=== PATIENT | male | born 1970 | race Caucasian/White ===

== ENCOUNTER 2019-05-11 06:06 | Emergency (ER) | payer BC ==
[2019-05-11] MEDS ORDERED: methylPREDNISolone Sodium Succinate 125 MG/2 ML SDV IM ONE (06:22)
--- NOTE | 2019-05-11 06:27 | EDM.PDOC ---
ED HPI GENERAL MEDICAL PROBLEM - General Chief Complaint: Skin Complaint Stated Complaint: RT ARM REDNESS Time Seen by Provider: 05/11/19 06:09 Source of Information: Reports: Patient History Limitations: Reports: No Limitations - History of Present Illness INITIAL COMMENTS - FREE TEXT/NARRATIVE: This is a 48-year-old male. He apparently was pulling out some findings that we think might be poison oak and he cut a small patch on his right ventral forearm. It is blistered and reddened and swollen and he comes to the ER for evaluation. No fever no chills but there is some redness with a swelling suggesting he is developing a cellulitis from it. The patches about 9 cm x 6 cm. He denies any other acute symptoms. - Related Data Allergies Allergy/AdvReac Type Severity Reaction Status Date / Time No Known Allergies Allergy Verified 05/11/19 06:14 Home Meds: Home Meds Cephalexin [Keflex] 500 mg PO TID #21 capsule 05/11/19 [Rx] ED ROS GENERAL - Review of Systems Review Of Systems: See Below Constitutional: Denies: Fever, Chills HEENT: Reports: No Symptoms Respiratory: Reports: No Symptoms Cardiovascular: Reports: No Symptoms Endocrine: Reports: No Symptoms GI/Abdominal: Reports: No Symptoms : Reports: No Symptoms Musculoskeletal: Reports: No Symptoms Skin: Reports: Other (As per history of present illness) Neurological: Reports: No Symptoms Psychiatric: Reports: No Symptoms Hematologic/Lymphatic: Reports: No Symptoms ED EXAM, SKIN/RASH Exam: See Below Exam Limited By: No Limitations General Appearance: Alert, WD/WN, No Apparent Distress Ears: Normal External Exam Nose: Normal Inspection Throat/Mouth: Normal Inspection, Normal Lips, Normal Voice, No Airway Compromise Head: Normocephalic Neck: Supple Respiratory/Chest: No Respiratory Distress Back Exam: Full Range of Motion Extremities: Other (On the right ventral forearm there is a 9 x 6 cm area of blistering and redness and swelling there is no other acute findings) Neurological: Alert, Oriented Psychiatric: Normal Affect, Normal Mood Skin: Warm, Dry Course - Vital Signs Last Recorded V/S: Last Vital Signs Temp 98.5 F 05/11/19 06:14 Pulse 62 05/11/19 06:14 Resp 16 05/11/19 06:14 BP 142/87 H 05/11/19 06:14 Pulse Ox 96 05/11/19 06:14 - Orders/Labs/Meds Orders: Active Orders 24 hr Category Date Time Status cefTRIAXone 1 GM with Lidocaine 1% 2.1 ML IM Med 05/11/19 06:30 Ordered cefTRIAXone [Rocephin] 1 gm Lidocaine 1% [Xylocaine 1%] 2.1 ml IM Q24H methylPREDNISolone Sod Succ [Solu-MEDROL] Med 05/11/19 06:22 Once 125 mg IM ONETIME ONE Departure - Departure Time of Disposition: 06:24 Disposition: Home, Self-Care 01 Condition: Good Clinical Impression: Contact dermatitis and eczema due to plant, Cellulitis of right forearm - Discharge Information *PRESCRIPTION DRUG MONITORING PROGRAM REVIEWED*: Not Applicable *COPY OF PRESCRIPTION DRUG MONITORING REPORT IN PATIENT ANT: Not Applicable Prescriptions: Cephalexin [Keflex] 500 mg PO TID #21 capsule Instructions: Cellulitis, Adult, Contact Dermatitis, [id number] Referrals: PCP,None [Primary Care Provider] - Additional Instructions: Keep the area clean with soap and water and covered, you may use the Caladryl lotion or if you want some hydrocortisone cream would work well to help dry the contact dermatitis, take the Keflex until it is finished, recheck with your family doctor later this week if it is not improving, return to the ER if it is obviously worsening or you have a fever greater than 101. - My Orders Last 24 Hours: My Active Orders 05/11/19 06:22 methylPREDNISolone Sod Succ [Solu-MEDROL] 125 mg IM ONETIME ONE 05/11/19 06:30 cefTRIAXone 1 GM with Lidocaine 1% 2.1 ML IM cefTRIAXone [Rocephin] 1 gm Lidocaine 1% [Xylocaine 1%] 2.1 ml IM Q24H - Assessment/Plan Last 24 Hours: My Active Orders 05/11/19 06:22 methylPREDNISolone Sod Succ [Solu-MEDROL] 125 mg IM ONETIME ONE 05/11/19 06:30 cefTRIAXone 1 GM with Lidocaine 1% 2.1 ML IM cefTRIAXone [Rocephin] 1 gm Lidocaine 1% [Xylocaine 1%] 2.1 ml IM Q24H
[2019-05-11] MEDS ORDERED: cefTRIAXone 1 GM, Lidocaine 1% 2.1 ML IM SCH ×2 (06:30)
== END 2019-05-11 06:48 | disposition home or self-care (01) ==
LOC: JD.ED 06:06
DX: L25.5 Unspecified contact dermatitis due to plants, except food (principal); L03.113 Cellulitis of right upper limb
CPT/HCPCS: 96372; 99283; J0696; J2001; J2930